=== PATIENT | female | born 1975 | race Caucasian/White ===

== ENCOUNTER → 2021-04-07 10:36 | Outpatient (BNVA) | payer MEDICAID, SELFPAY | PROVIDERS: Family Provider Family Medicine; PCP Family Medicine; Referring Provider Family Medicine; Visit Provider Podiatrist Foot & Ankle Surgery | DX: M25.572 Pain in left ankle and joints of left foot (principal); T84.89XA Other specified complication of internal orthopedic prosthetic devices, implants and grafts, initial encounter; Y79.3 Surgical instruments, materials and orthopedic devices (including sutures) associated with adverse incidents; Z87.81 Personal history of (healed) traumatic fracture | CPT/HCPCS: 73610 ==

== ENCOUNTER 2022-02-04 08:23 | Emergency (ER) | payer MEDICARE, MEDICAID, SELFPAY ==
[2022-02-04 08:30] VITALS: BP 145/89; PULSE 87; RESP 13; TEMP 36.7; O2SAT 99; BMI 38.9
--- NOTE | 2022-02-04 08:38 | XR_ITS ---
WS: [id number] Exam: XR hand LT min 3V* [id number] Date/Time of Exam: 02/04/2022 8:40 AM Reason For Exam: pain No fracture or dislocation. No soft tissue foreign bodies are identified. XR/XR hand LT min 3V* [id number] IMPRESSION: 1. Negative left hand.
--- NOTE | 2022-02-04 09:09 | W.ED.EXTPRO ---
HPI - Extremity Problem General: Chief complaint: Extremity Injury, Upper Stated complaint: left hand pain/injury Time Seen by Provider: 02/04/22 08:38 Source: patient Mode of arrival: ambulatory Limitations: no limitations History of Present Illness: 46 yo female present to the ER [facility] complaints of L thumb pain for the lasst 2-3 wks. She caught it while trying to put a cover on a sofa. SHe has not been seen or taken any medication for it. MD Complaint: joint pain Onset (ago): week(s) (3) Pain Consistency: constant Location: left Quality: aching Radiation: proximal Exacerbating factors: range of motion, weight bearing and palpation Associated symptoms: Deny chest pain, fever(s) or rash Review of Systems Const: Denies: fever(s), chills, body aches, change in appetite, fatigue or malaise ENMT: Denies: throat pain, ear or mastoid pain, nasal discharge or nasal congestion Card: Denies: chest pain, edema, dyspnea on exertion or orthopnea Resp: Denies: dyspnea, productive cough or non-productive cough GI: Denies: abdominal pain, nausea, vomiting, hematemesis, coffee ground emesis, diarrhea, constipation, bloating, hematochezia or melena : Denies: flank pain, difficulty voiding, dysuria, urinary frequency or urinary urgency Skin/Breast: Denies: rash or pruritus PFSH ED PFSH: Social History Smoking and tobacco status: current every day smoker Household members: spouse Physical Exam Const: COMMON NORMALS: no acute distress GENERAL APPEARANCE: cooperative and comfortable ORIENTATION/CONSCIOUSNESS: Yes awake, Yes oriented to person, Yes oriented to place and Yes oriented to time HENMT: COMMON NORMALS: normocephalic, atraumatic and hearing grossly normal bilaterally HEAD & SCALP: normocephalic and atraumatic Extremity: OTHER: Left thumb good endpoint on stressing the ulnar collateral ligament no obvious deformities no ecchymosis no swelling no joint effusion Neuro: SENSORIUM/ORIENTATION: Yes oriented to person, Yes oriented to place and Yes oriented to time Skin: COMMON NORMALS: no rashes or lesions noted GENERAL SKIN EXAM: no rashes or lesions noted Course Vital Signs: Vital signs: Vital Signs Temperature 98.1 F 02/04/22 08:30 Pulse Rate 87 02/04/22 08:30 Respiratory Rate 13 02/04/22 08:30 Blood Pressure 145/89 02/04/22 08:30 Pulse Oximetry 99 02/04/22 08:30 Oxygen Delivery Me thod 02/04/22 08:30 MDM - Extremity (Nontraumatic) Medical Decision Making Plain films negative. Anti-inflammatories as needed follow-up with primary care process Lab Data Radiology Impressions Hand X-Ray 02/04/22 08:38 IMPRESSION: 1. Negative left hand. Discharge Plan Discharge Patient Disposition: Home Clinical Impression: Finger sprain Condition: Stable Prescriptions: New diclofenac sodium 75 mg tablet,delayed release (DR/EC) 75 mg PO Q12H PRN (Reason: pain) Qty: 20 0RF Discharge Orders: Discharge ED (Routine); Ordered 02/04/22 Ordered By: Lion Becerra Referrals: Liseth Finch MD [Primary Care Provider] - Discharge Diet: Usual diet Discharge Activity: Limit activity as instructed Patient Instructions: Opioid Safety, Pain Management Activity Restrictions/Additional Instructions: Limit use of the left thumb. Recommend a thumb spica splint and will have you see orthopedics Case management will make arrangements for the referral. Coding Level of Care Code ED Rattlesnake Farmer for Neftali Fwd Exam Expanded Problem Focused
--- NOTE | 2022-02-07 13:55 | DCPLANNER ---
Addendum entered by Anna Bernabe 03/09/22 11:45: Patient had follow up appointment scheduled with ortho - patient did attend appointment. Addendum entered by Anna Bernabe 02/10/22 09:10: Patient has a follow up appointment scheduled for Monday, February 16, 2022 at 9:[address] Ho at ortho. Clinic will call patient with appointment information. Original Note: hotel operations manager had message to schedule a follow up appointment for patient with ortho. hotel operations manager sent patients information to the front office staff at ortho. Patients information will be printed and reviewed. Clinic will call patient with appointment information.
== END 2022-02-04 09:49 | disposition home or self-care (01) ==
PROVIDERS: Emergency Provider Family Medicine; PCP Family Medicine
DX: S63.602A Unspecified sprain of left thumb, initial encounter (principal); X58.XXXA Exposure to other specified factors, initial encounter
CPT/HCPCS: 73130; 99283

== ENCOUNTER → 2022-02-16 08:38 | Outpatient (BNVA) | payer MEDICARE, MEDICAID, SELFPAY | PROVIDERS: PCP Family Medicine; Visit Provider Orthopaedic Surgery | DX: M79.642 Pain in left hand (principal) | CPT/HCPCS: 99203 ==

== ENCOUNTER → 2022-04-15 17:59 | Outpatient (BNVA) | payer MEDICARE, MEDICAID, SELFPAY | PROVIDERS: PCP Family Medicine; Visit Provider Nurse Practitioner Family | DX: R39.9 Unspecified symptoms and signs involving the genitourinary system (principal) | CPT/HCPCS: 81000 ==

== ENCOUNTER 2022-10-23 13:56 | Emergency (ER) | payer MEDICARE, MEDICAID, SELFPAY ==
[2022-10-23 14:08] VITALS: BP 127/69; PULSE 84; RESP 14; TEMP 36.5; O2SAT 97; BMI 38.0
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
[2022-10-23 16:47] VITALS: BP 142/97; PULSE 79; O2SAT 98
== END 2022-10-23 16:49 | disposition home or self-care (01) ==
PROVIDERS: Emergency Provider Physician Assistant; PCP Family Medicine
DX: S70.02XA Contusion of left hip, initial encounter (principal); S50.312A Abrasion of left elbow, initial encounter; S40.212A Abrasion of left shoulder, initial encounter; F17.210 Nicotine dependence, cigarettes, uncomplicated; V29.39XA Other motorcycle (driver) (passenger) injured in unspecified nontraffic accident, initial encounter
CPT/HCPCS: 73523; 99283

== ENCOUNTER 2023-01-17 15:42 | Emergency (ER) | payer MEDICARE, MEDICAID, SELFPAY ==
[2023-01-17 15:54] VITALS: BP 129/79; PULSE 97; RESP 18; TEMP 36.5; O2SAT 98; BMI 34.3
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
[2023-01-17] MEDS: HYDROcodone-acetaminophen 5-325 mg Tablet 1 TAB PO (17:57)
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
== END 2023-01-17 18:44 | disposition home or self-care (01) ==
PROVIDERS: Emergency Provider Emergency Medicine; PCP Family Medicine
DX: S00.83XA Contusion of other part of head, initial encounter (principal); F17.210 Nicotine dependence, cigarettes, uncomplicated; W50.1XXA Accidental kick by another person, initial encounter
CPT/HCPCS: 70110; 70486; 99284

== ENCOUNTER → 2023-08-30 14:14 | Outpatient (BNVA) | payer MEDICARE, MEDICAID, SELFPAY | PROVIDERS: PCP Family Medicine; Visit Provider Nurse Practitioner | DX: R30.0 Dysuria (principal) | CPT/HCPCS: 81000 ==